=== PATIENT | female | born 1930 | race Caucasian/White ===

== ENCOUNTER 2016-09-12 13:46 | Inpatient (IN) | payer MEDICARE ==
[2016-09-12] MEDS ORDERED: VESICARE5 MG PO (14:31)
[2016-09-12] MEDS ORDERED: PRAVASTATIN SOD10 MG PO (14:31)
[2016-09-12] MEDS ORDERED: CLEOCIN HCL300 MG PO (14:32)
[2016-09-12] MEDS ORDERED: COZAAR25 MG PO (14:33)
[2016-09-12] MEDS ORDERED: PEPCID20 MG PO (14:33)
[2016-09-12] MEDS ORDERED: NORVASC10 MG PO (14:33)
[2016-09-12] MEDS ORDERED: MOBIC7.5 MG PO (14:34)
[2016-09-12] MEDS ORDERED: OMEPRAZOLE40 MG PO (14:34)
[2016-09-12] MEDS ORDERED: KLOR-CON 1010 MEQ PO (14:35)
[2016-09-12] MEDS ORDERED: PROBIOTIC1 EAC1 PO (14:36)
[2016-09-12] MEDS ORDERED: DEPAKOTE SPRIN125 MG PO (14:37)
[2016-09-12] MEDS ORDERED: COREG12.5 MG PO (14:37)
[2016-09-12] MEDS ORDERED: KLONOPIN1 MG PO (14:38)
[2016-09-12] MEDS ORDERED: ULTRAM50 MG PO (14:38)
[2016-09-12] MEDS ORDERED: CELEXA20 MG PO (14:38)
[2016-09-12 15:14] VITALS: BP 142/68
--- NOTE | 2016-09-12 15:31 | NUR ---
PT WAS ADMITTED FROM [facility] FOR INCREASED CONFUSION, AGITATION, SPITTING FOOD AT STAFF, RESTLESSNESS, AND NOT SLEEPING FOR MULTIPLE DAYS. DAUGHTER STATED THAT SHE ALSO PULLED HER HAIR. PT CONTINUES TO YELL AND IS RESISTANT TO CARE. PT CONTINUED TO ATTEMPT TO SLIDE OUT OF HER WHEELCHAIR DURING ADMIT, SO SHE WAS PLACED IN THE BED WITH A SASCHA PAD ALARM IN PLACE. CODE STATUS ADDRESSED WITH HER DAUGHTERS AND PT IS A DNR. PT IS A HIGH FALL RISK AND HAS HAD MULTIPLE FALLS PRIOR TO BEING ADMITTING TO [facility]. FALL PRECAUTIONS INITIATED AND WILL CONTINUE TO MONITOR.
[2016-09-12 16:08] LABS: BASOPHILS 0.2 % (0.0-2.0); EOSINOPHILS 1.1 % (0-7); HEMATOCRIT 32.5 % (36.0-48.0); HEMOGLOBIN 10.2 g/dL (12-16); IMMATURE GRANULOCYTES 0.3 % (0-5); LYMPHOCYTES 24.9 % (15-50); MCH 30.7 pg (26.0-34.0); MCHC 31.4 g/dL (31.0-37.0); MCV 97.9 fL (80.0-100.0); MEAN PLATELET VOLUME 10.4 fL (7.4-10.4); MONOCYTES 8.5 % (2-11); PLATELET COUNT 211 10x3/uL (130-400); RBC 3.32 10x6/uL (4.00-5.40); RDW 15.1 % (11.5-14.5); WBC 8.7 10x3/uL (4.8-10.8)
[2016-09-12 16:23] LABS: HEMOGLOBIN A1C 5.5 % (4.8-6.0)
[2016-09-12 17:33] LABS: ALBUMIN 3.1 g/dL (3.4-5.0); ANION GAP 16.4 mmol/L (8-16); BILIRUBIN - TOTAL 0.32 mg/dL (0.2-1.3); CALCIUM 9.3 mg/dL (8.5-10.1); CARBON DIOXIDE 23.2 mmol/L (21.0-32.0); CHOL - HDL RATIO 4.6 ratio (2.3-4.1); CREATININE - SERUM 1.8 mg/dL (0.6-1.3); LDL-HDL RATIO 2.2 ratio (1.5-3.5); PROTEIN - SERUM 6.9 g/dL (6.4-8.2); THYROID STIMULATING HORMONE 2.74 uIU/mL (0.36-3.74); VALPROIC ACID (DEPAKOTE) 26.5 ug/mL (50.0-100.0)
[2016-09-12 17:42] LABS: POTASSIUM - SERUM 6.6 mmol/L (3.5-5.1)
--- NOTE | 2016-09-12 18:43 | NUR ---
Kayexalate 15gm po given for critical potassium level of 6.6, patient compliant with medication administration.
[2016-09-12 19:00] VITALS: BP 110/70
[2016-09-12 21:00] VITALS: BP 110/70
--- NOTE | 2016-09-13 01:10 | NUR ---
B) Recieved patient in her bed, alert and restless, patient unable to stay still, I) Administered perscribed medications, monitored for safety, R) medication compliant, resting now quietly, P) Continue plan of care.
[2016-09-13 06:58] LABS: ANION GAP 18.6 mmol/L (8-16); CALCIUM 9.7 mg/dL (8.5-10.1); CARBON DIOXIDE 21.2 mmol/L (21.0-32.0); CREATININE - SERUM 1.4 mg/dL (0.6-1.3)
[2016-09-13 06:59] LABS: POTASSIUM - SERUM 4.8 mmol/L (3.5-5.1)
[2016-09-13 08:22] LABS: FOLATE (FOLIC ACID) - SERUM 16.8 ng/mL (>3.0); VITAMIN D 25 HYDROXY 42.1 ng/mL (30.0-100.0)
[2016-09-13 08:30] VITALS: BP 146/86
[2016-09-13 10:20] LABS: RAPID PLASMA REAGIN Non Reactive (Non Reactive)
--- NOTE | 2016-09-13 11:33 | NUR ---
Pt in wheelchair with alarm. Pt yelling and grimacing in pain. Exray of rt knee ordered. Duragesic 12 mcg patch ordered and placed. Pt continues to attempt to undress. Medications given as ordered. Assistance given for full assist. Redirection and reorientation given as needed. Will continue to monitor and continue plan of care.
--- NOTE | 2016-09-13 14:46 | NUR ---
Pt in recliner grimacing and yelling out. Tylenol 650mg po and ativan 0.5mg po given with applesauce.
[2016-09-13 15:17] VITALS: Wt 67.8 kg
--- NOTE | 2016-09-13 15:27 | NUR ---
WOUND CARE CONSULT PT HAS 2 OPEN WOUNDS ON RIGHT UPPER THIGH. UPPER MOST MEASURES APPROX 1CM X 1CM X 1CM LOWER WOUND MEASURES 2CM X 2CM X APPROX 1.5CM I AM UNABLE TO DETERMINE IF THE WOUNDS TUNNEL OR HAVE UNDERMINING PT IS VERY CONFUSED AND CONSTANTLY MOVING HER LEGS AND ARMS. WOUND RECOMMEND 1/2" PLAIN PACKING STRIP SATURATED WITH NORMAL SALINE IN BOTH WOUNDS (IF PT WILL ALLOW DRESSING TO BE DONE AND IF SHE WILL KEEP IT INTACT) AND COVERING WITH A WHITE BORDERED GAUZE. WOUND CARE WILL CONTINUE TO MONITOR.
--- NOTE | 2016-09-13 15:48 | NUR ---
Pt still grimacing, settles down for a few minutes when spoken to but then resumes. Repositioning performed by staff for comfort. Pt ate 100% of applesauce with assist.
--- NOTE | 2016-09-13 15:57 | NUR ---
updated pt's daughter on pt's behavior and test results. also reviewed skin issues with daughter. explained that the pt had c/o pain in right knee and an xray was ordered. daughter stated that the hip sx was done at formerly [facility] by Dr. Bradley.
--- NOTE | 2016-09-13 17:33 | NUR ---
Pt very agitated, trying to roll out of chair, over arms. Ativan 0.5mg IM given left hip.
[2016-09-13 20:27] VITALS: BP 108/53
--- NOTE | 2016-09-14 04:13 | NUR ---
B) Recieved patient in the day room, sleeping, difficult to arrouse, patient trying to slide out of her vanessa chair, I) amdinistered perscribed medication crushed in apple sauce, R) medication compliant, patient is a total lift X 2 assist. patient is nonverbal this shift, P) Continue plan of care continue to monitor.
[2016-09-14 06:00] LABS: BASOPHILS 0.4 % (0.0-2.0); EOSINOPHILS 0.7 % (0-7); HEMATOCRIT 32.5 % (36.0-48.0); HEMOGLOBIN 10.1 g/dL (12-16); IMMATURE GRANULOCYTES 0.2 % (0-5); LYMPHOCYTES 28.3 % (15-50); MCH 30.6 pg (26.0-34.0); MCHC 31.1 g/dL (31.0-37.0); MCV 98.5 fL (80.0-100.0); MEAN PLATELET VOLUME 10.4 fL (7.4-10.4); MONOCYTES 12.3 % (2-11); NEUTROPHILS 58.1 % (40-80); PLATELET COUNT 196 10x3/uL (130-400); RDW 15.6 % (11.5-14.5); WBC 8.4 10x3/uL (4.8-10.8)
[2016-09-14 06:08] LABS: ANION GAP 16.9 mmol/L (8-16); POTASSIUM - SERUM 4.9 mmol/L (3.5-5.1)
[2016-09-14 06:09] LABS: CREATININE - SERUM 2.3 mg/dL (0.6-1.3)
[2016-09-14 09:40] VITALS: BP 158/74
--- NOTE | 2016-09-14 15:04 | NUR ---
(B)RECEIVED PATIENT LAYING IN THE BED. MOANING AND GROANING. NO VERBAL RESPONSES WHEN ATTEMPTING TO TALK TO PATIENT. POOR EYE CONTACT. DOES NOT PARTICIPATE IN CARE. (I)ADMINISTER MEDS AND MONITOR COMPLIANCE. ENCOURAGE TO ASSIST WITH TRANSFERS AND GENERAL CARE. (R)MED COMPLIANT. CONTINUES TO LAY AND MOAN AND GROAN. DOES NOT ASSIST WITH ANY CARE FOR INSTANCE EATING, STAFF ATTEMPTS TO HELP FEED HER AND SHE WILL NOT EAT NOR TRY TO FEED SELF. LAYS AND DOES NOT INTERACT WITH OTHERS. (P)CONTINUE POC AND MAINTAIN FALL PRECAUTIONS.
[2016-09-14 19:30] VITALS: BP 142/79
--- NOTE | 2016-09-15 04:28 | NUR ---
PATIENT IN DAYROOM IN RECLINER. SHE IS PICKING AT CLOTHING AND MOANING. SHE IS ABLE TO FOLLOW DIRECTION WHEN GIVEN MEDICATION. NO AGGRESSION OR AGGITATION. CONTINUE TO MONITOR,
--- NOTE | 2016-09-15 09:42 | PN ---
PATIENT:EMILEE RICH MEDICAL RECORD: [id number] LOCATION:[facility] ADMISSION DATE: 09/12/16 PROGRESS NOTE DATE OF SERVICE: 09/14/2016 SUBJECTIVE: No new complaint. OBJECTIVE: The patient is very poorly articulated. X-ray of the knee was negative. She is tolerating medications fairly well. On exam, mood is euthymic. Affect constricted. Speech is terse. Content of thought focuses only on somatic concerns. Sensorium shows no change. ASSESSMENT: No change in diagnosis. PLAN: 1. Continue current medications. 2. Continue supportive therapy. TRANSINT:[id number] Voice Confirmation ID: [id number] DOCUMENT ID: [id number] MIRA KU III, MD at 0942 CC: [id number] DICTATION DATE: 09/14/16 1305 NURSE EXTERN: 09/14/16 1547 ADM IN [id number] [place] [address]
--- NOTE | 2016-09-15 09:42 | PSY ---
PATIENT NAME:EMILEE RICH MEDICAL RECORD: [id number] : 32 LOCATION:[facility] ADMISSION DATE: 09/12/16 ACCOUNT: [id number] PSYCHIATRIC EVALUATION DATE OF EVALUATION: 09/13/16 IDENTIFYING DATA: This is the first Alf admission for this 86-year-old white female. HISTORY OF PRESENT ILLNESS: This patient is a resident of [facility] in [place]. She did undergo hip surgery in July of this year. According to family, she has had severely worsened mental status since that time, although she had had memory problems and some confusion prior to the surgery. Confusion and memory loss as well as agitation have been considerably worse subsequent to the surgery. She has exhibited aggression towards her daughters. She also has been exhibiting recently very poor sleep, outbursts of yelling and worsened agitation. She does have a history of falls. There is no documented history of dementia diagnosis prior to this admission. PAST MEDICAL HISTORY: The patient had been treated previously with Celexa, presumably for depressive symptoms. She has also been placed on Depakote Sprinkles, again presumably for control of agitation. MEDICATIONS: Other medications that the patient was taking prior to transfer included Duragesic patch, Pravachol, Mobic 15 mg daily, Cozaar 25 mg daily, Pepcid 20 mg daily, Norvasc 10 mg daily, Coreg 12.5 mg daily, Protonix 40 mg daily, VESIcare 5 mg h.s.. ONGOING MEDICAL PROBLEMS: Included hypertension, GERD, chronic pain, cardiac arrhythmias and a recent hip surgery. The patient has also been taking Cleocin 300 mg every 8 hours. FAMILY HISTORY: Noncontributory. ALLERGIES: None known. SOCIAL HISTORY: The patient is currently a intermediate resident. She does have family involved in her care. No substance abuse issues. On exam, the patient exhibits anxious and dysphoric mood. She does not interact extremely well with the examiner. Affect is rather brittle. Speech is tangential. Content of thought is focused only on somatic concerns. The patient is oriented to person, but not as to place or time. Memory appears to be globally impaired. 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 AXIS II: No diagnosis. AXIS III: Recent hip surgery, arthritis, hypercholesterolemia, gastroesophageal reflux disease, hypertension, cardiac arrhythmias. AXIS IV: Severe. AXIS V: 34. PLAN: 1. The patient is admitted for further medical and psychiatric workup. 2. Supportive therapy. 3. We will coordinate with facility and family regarding aftercare. TRANSINT:[id number] Voice Confirmation ID: [id number] DOCUMENT ID: [id number] MIRA KU III, MD at 0942 CC: [id number] DICTATION DATE: 09/13/16 120 HEAD MIXER: 09/13/16 1248 ADM IN [id number] [place] [address]
--- NOTE | 2016-09-15 14:23 | NUR ---
(B)RECEIVED PATIENT SITTING IN A CHAIR AT THE NURSE'S STATION. RESTLESS. MOANING AND GROANING. TRYING TO PULL IV OUT AND CLOTHES OFF. REQUIRES ONE TO ONE WITH STAFF.WILL OCCASIONAL SPEAK ONE WORD THAT IS UNDERSTANDABLE. IV D51/4 INFUSING AT 100CC/HR PER LEFT PERIPHERAL IV. (I)ADMINISTER MEDS AND MONITOR COMPLIANCE. REDIRECT FOR TRYING TO PULL CLOTHES OFF AND IV OUT. (R)MED COMPLIANT. POOR REDIRECTION. PATIENT WILL MOAN, MUMBLE AND KEEP PULLING AT CLOTHES AND IV. 1:1 WITH STAFF AT ALL TIMES. PATIENT ON TEMPORARY ISOLATION FOR POSSIBLE STAPH OF THE RIGHT LEG INCISION. PLACED IN YELLOW GOWN AND GLOVES. (P)CONTINUE POC AND MAINTAIN FALL PRECAUTIONS.
[2016-09-15 18:28] LABS: ALBUMIN 2.6 g/dL (3.4-5.0); ANION GAP 16.1 mmol/L (8-16); BILIRUBIN - TOTAL 0.3 mg/dL (0.2-1.3); CALCIUM 8.6 mg/dL (8.5-10.1); CARBON DIOXIDE 20.4 mmol/L (21.0-32.0); POTASSIUM - SERUM 4.5 mmol/L (3.5-5.1); PROTEIN - SERUM 6.3 g/dL (6.4-8.2)
[2016-09-15 19:30] VITALS: BP 130/74
--- NOTE | 2016-09-16 00:53 | NUR ---
B) Recieved sitting in the day room in a vanessa chair, alert and oriented to self, one on one with a MHT due to having an IV and being very restless, I) Administered perscribed medications, redirected as needed, monitored for safety, R) Medication compliant, difficult to redirect, P) Continue plan of care, continue to monitor.
[2016-09-16 06:52] LABS: ANION GAP 19.5 mmol/L (8-16); CALCIUM 8.6 mg/dL (8.5-10.1); CARBON DIOXIDE 20.2 mmol/L (21.0-32.0); CREATININE - SERUM 1.6 mg/dL (0.6-1.3); POTASSIUM - SERUM 4.7 mmol/L (3.5-5.1)
--- NOTE | 2016-09-16 13:08 | NUR ---
RECEIVED SITTING IN RECLINER THIS AM.HAS EYES CLOSED.RESTLESS AND MOANS AND GROANS.PULLS AT CLOTHES IN ATTEMPT TO PULL THEM OFF .DOES NOT RESPOND VEBALLY,MAKES INCOHERRANT SOUNDS.IV OF D5 INFUSING TO LEFT ARM AT 100ML/HR.RT ANTERIOR THIGH HAS DRESSING INTACT,CLEAN AND DRY.WILL CONTINUE WITH PLAN OF CARE,MONITOR FOR CHANGES AND SAFETY.
[2016-09-16 19:01] LABS: BASOPHILS 0.1 % (0.0-2.0); EOSINOPHILS 0.4 % (0-7); HEMATOCRIT 33.3 % (36.0-48.0); HEMOGLOBIN 10.3 g/dL (12-16); IMMATURE GRANULOCYTES 0.4 % (0-5); LYMPHOCYTES 8.9 % (15-50); MCHC 30.9 g/dL (31.0-37.0); MCV 100.3 fL (80.0-100.0); MEAN PLATELET VOLUME 10.9 fL (7.4-10.4); NEUTROPHILS 82.2 % (40-80); PLATELET COUNT 163 10x3/uL (130-400); RBC 3.32 10x6/uL (4.00-5.40); RDW 15.1 % (11.5-14.5)
[2016-09-16 19:03] LABS: WBC 14.3 10x3/uL (4.8-10.8)
[2016-09-16 19:18] LABS: ALBUMIN 2.7 g/dL (3.4-5.0); ANION GAP 14.2 mmol/L (8-16); BILIRUBIN - TOTAL 0.49 mg/dL (0.2-1.3); CALCIUM 8.5 mg/dL (8.5-10.1); CARBON DIOXIDE 23.7 mmol/L (21.0-32.0); CREATININE - SERUM 1.5 mg/dL (0.6-1.3); MAGNESIUM - SERUM 1.8 mg/dL (1.8-2.4); PHOSPHOROUS 4.1 mg/dL (2.5-4.9); POTASSIUM - SERUM 4.9 mmol/L (3.5-5.1); PROTEIN - SERUM 6.4 g/dL (6.4-8.2)
[2016-09-16 19:30] VITALS: BP 110/82
--- NOTE | 2016-09-16 21:59 | NUR ---
B) PATIENT IS LETHARGIC, NOT AWAKENING TO VOICE OR TOUCH, SHE DOES OPEN HER EYES AND MOAN ON OCCASION. PATIENT HAS AN IV CATH IN LEFT AC, DAY NURSE DALE SAID WE ARE TO HOLD THE IV, DISCONNECTED IV LINE FROM PATIENT AND WILL WAIT FOR FURTHER ORDERS FROM DR. ELLIOTT. I) PROVIDE PRESCRIBED MEDS. R) HELD PO MEDS PATIENT IS TOO SLEEPY. CLEANSED RIGHT UPPER THIGH WOUND AND REDRESSED. P) CONTINUE PLAN OF CARE.
--- NOTE | 2016-09-17 01:19 | NUR ---
PATIENT HAS CRITICAL AMONIA LEVEL, DR. ELLIOTT NOTIFIED. PATIENT PUT BACK ON 5% DEXTROSE FLUIDS AT 75 ML PER HOUR.
[2016-09-17 06:25] LABS: ANION GAP 14.2 mmol/L (8-16); CALCIUM 8.6 mg/dL (8.5-10.1); CARBON DIOXIDE 23.3 mmol/L (21.0-32.0); CREATININE - SERUM 1.7 mg/dL (0.6-1.3); POTASSIUM - SERUM 4.5 mmol/L (3.5-5.1)
--- NOTE | 2016-09-17 08:00 | NUR ---
Received patient this am, lying in bed, moaning and trashing about in bed. Report per pm nurse that patient Iv infiltrated, vascular nurse to resite this am, patient also has critical ABG's and Ammonia level. Final report from wound culture has returned positive MRSA. Md called regarding vascular nurse unable to resite IV, reccommending midline. Per Dr. Holloway, transfer patient to medical floor. Transfer orders complete. Report called to Meghan on med surg. Patient daughter called regarding transfer to medical floor and room number.
--- NOTE | 2016-09-17 08:51 | PN ---
PATIENT:EMILEE RICH MEDICAL RECORD: [id number] LOCATION:[facility] ADMISSION DATE: 09/12/16 PROGRESS NOTE DATE OF SERVICE: 09/15/2016 SUBJECTIVE: No new complaint. OBJECTIVE: The patient continues to be quite restless. She has been started on IV because of hypokalemia. She requires close monitoring because the patient has attempted to pull out her IV. On exam, mood very anxious. Affect is brittle. Speech is not coherent. Content of thought focuses only on somatic concerns. Sensorium is unchanged. ASSESSMENT: No change in diagnosis. PLAN: 1. Continue all current medications. 2. Continue supportive therapy. TRANSINT:[id number] Voice Confirmation ID: [id number] DOCUMENT ID: [id number] MIRA KU III, MD at 0851 CC: [id number] DICTATION DATE: 09/15/16 1114 VISITING HOUSEKEEPER: 09/15/16 1125 ADM IN [id number] [place] [address]
[2016-09-17 09:12] VITALS: BP 183/74
--- NOTE | 2016-09-19 08:11 | DS ---
PATIENT:EMILEE RICH :32 MEDICAL RECORD: [id number] DISCHARGE SUMMARY ADMISSION DATE: 09/12/16 DISCHARGE DATE: 09/17/16 DATE OF ADMISSION: 09/12/2016 DATE OF DISCHARGE: 09/17/2016 HISTORY OF PRESENT ILLNESS: An 86-year-old white female who is a resident [facility] in [place]. The patient was in [facility] for rehabilitative stay. She had undergone hip surgery in July of this year. Since the hip surgery, the patient has shown a significant worsening in mental status. She had been exhibiting some minor memory problems prior to surgery, but confusion and memory loss were extremely prominent postoperatively. Because of agitation and obvious distress, the patient was admitted to [facility]. For further details, please see previously dictated history. COURSE IN THE HOSPITAL: The patient was evaluated by primary care Dr. Holloway. On initial exam, the previous surgery was noted the patient did have a significant wound from a recent hip surgery. The area of the incision remained open with some induration. At a later assessment, it appeared that there was some purulent material. The wound consult was obtained and the patient was started on antibiotics throughout the hospitalization. The patient continued to experienced pain. She was given tramadol for pain control. Wound was cultured and came back positive for MRSA. From a psychiatric standpoint, the patient was treated with p.r.n. Ativan and Celexa for depressive symptoms. However, the overriding concern was possible wound infection and complications as a result of this. Other ongoing medical problems included electrolyte disturbance. The patient was started on IV for control of hypernatremia. Following the receipt of the positive wound culture, was elected to transfer the patient to the medical floor for more extensive treatment. FINAL DIAGNOSES: AXIS I: Probable Alzheimer dementia, secondary delirium. AXIS II: No diagnosis. AXIS III: Recent hip surgery with possible wounds infection, recently ____ macular degeneration, anemia, hypercholesterolemia, arthritis, gastroesophageal reflux disease, hypertension. AXIS IV: Severe. AXIS V: 28. PLAN: The patient is told that the medical floor all possible treatment team. TRANSINT:[id number] Voice Confirmation ID: [id number] DOCUMENT ID: [id number] DISCHARGE SUMMARY REPORT [id number] EMILEE RICH III, MIRA Treadwell MD at 0825 CC: [id number] DICTATION DATE: 09/17/16 0849 FAMILY AND MARRIAGE COUNSELLOR: 09/18/16 0112 DIS IN 09/17/16 [facility] [id number]
== END 2016-09-17 08:55 | disposition short-term general hospital (02) | DRG 57 ==
LOC: D.PSYCH 13:46
PROVIDERS: Family Medicine; ADMIT Psychiatry & Neurology Psychiatry
DX: G30.9 Alzheimer's disease, unspecified (principal); F05 Delirium due to known physiological condition; E87.0 Hyperosmolality and hypernatremia; N17.9 Acute kidney failure, unspecified; F02.80 Dementia in other diseases classified elsewhere, unspecified severity, without behavioral disturbance, psychotic disturbance, mood disturbance, and anxiety; H35.30 Unspecified macular degeneration; D64.9 Anemia, unspecified; E78.00 Pure hypercholesterolemia, unspecified; K21.9 Gastro-esophageal reflux disease without esophagitis; I10 Essential (primary) hypertension; F41.9 Anxiety disorder, unspecified; F32.9 Major depressive disorder, single episode, unspecified; R21 Rash and other nonspecific skin eruption; Z91.81 History of falling; S31.809A Unspecified open wound of unspecified buttock, initial encounter; B95.62 Methicillin resistant Staphylococcus aureus infection as the cause of diseases classified elsewhere

== ENCOUNTER 2016-09-17 09:38 | Inpatient (IN) | payer MEDICARE, OTHER ==
[~2016-09-17] VITALS: Ht 157.5 cm; Wt 67.6 kg
--- NOTE | 2016-09-17 09:00 | NUR ---
RECEIVED FROM [facility], THRASHING IN BED, PULLING NC OFF, PULLED IV OUT, VASCULAR ACCESS NURSE ATTEMPTED TO PUT MIDLINE IN, SHE WOULDN'T STAY STILL ENOUGH, WILL CONTINUE TO MONITOR
[~2016-09-17 09:38] MED LIST: CELEXA20 MG PO; CLEOCIN HCL300 MG PO; COREG12.5 MG PO; COZAAR25 MG PO; DEPAKOTE SPRIN125 MG PO; KLONOPIN1 MG PO; KLOR-CON 1010 MEQ PO; MOBIC7.5 MG PO; NORVASC10 MG PO; OMEPRAZOLE40 MG PO; PEPCID20 MG PO; PRAVASTATIN SOD10 MG PO; PROBIOTIC1 EAC1 PO; ULTRAM50 MG PO; VESICARE5 MG PO
--- NOTE | 2016-09-17 10:39 | NUR ---
WOUND CARE: NOTED WOUNDS TO UPPER RIGHT THIGH HAVE NOT IMPROVED. TOP WOUND MEASURES 0.5CM X 0.5CM X 1CM IT IS YELLOW/NECROTIC. LOWER WOUND MEASURES 2CM X 2CM X 2CM X 1CM @ 12 OCLOCK. YELLOW NECROTIC TISSUE IS NOTED. CULTURE GREW MRSA ALSO NOTED MOISTURE ASSOCIATED DERMATITIS ON HER BOTTOM. RECOMMEND CALMOSEPTINE CREAM BE APPLIED. ORTHO HAS BEEN CONSULTED. WOUND CARE WILL CONTINUE TO MONITOR.
[2016-09-17 10:49] VITALS: BP 128/72; BMI 27.3
[2016-09-17 11:27] LABS: BASOPHILS 0.1 % (0.0-2.0); EOSINOPHILS 1.2 % (0-7); HEMATOCRIT 29.6 % (36.0-48.0); HEMOGLOBIN 9.3 g/dL (12-16); IMMATURE GRANULOCYTES 0.4 % (0-5); LYMPHOCYTES 10.5 % (15-50); MCH 30.7 pg (26.0-34.0); MCHC 31.4 g/dL (31.0-37.0); MEAN PLATELET VOLUME 10.8 fL (7.4-10.4); MONOCYTES 7.5 % (2-11); NEUTROPHILS 80.3 % (40-80); PLATELET COUNT 161 10x3/uL (130-400); RBC 3.03 10x6/uL (4.00-5.40); RDW 14.7 % (11.5-14.5); WBC 14.2 10x3/uL (4.8-10.8)
[2016-09-17 11:38] LABS: MCV 97.7 fL (80.0-100.0)
[2016-09-17 11:39] LABS: ALBUMIN 2.5 g/dL (3.4-5.0); ANION GAP 12.8 mmol/L (8-16); BILIRUBIN - TOTAL 0.47 mg/dL (0.2-1.3); CALCIUM 8.8 mg/dL (8.5-10.1); CARBON DIOXIDE 24.2 mmol/L (21.0-32.0); CREATININE - SERUM 1.6 mg/dL (0.6-1.3); PROTEIN - SERUM 6.4 g/dL (6.4-8.2)
[2016-09-17 11:40] VITALS: BP 126/74
[2016-09-17 14:24] VITALS: BP 136/50
[2016-09-17 15:32] VITALS: BP 136/50
--- NOTE | 2016-09-17 20:05 | NUR ---
PT LYING IN BED MOANING, BILAT WRISTS IN SOFT RESTRAINTS, REMOVED ONE AT A TIME TO ASSESS CIRCULATION AND MOVEMENT, BOTH WNL, NO ACUTE PHYSICAL DISTRESS NOTED AT THIS TIME, FALL AND ISOLATION PRECAUTIONS IN PLACE, CL IN REACH, DOOR OPEN FOR EASY VIEWING, WILL MONITOR
[2016-09-18] VITALS (8 sets, daily range): BP systolic 85–169; BP diastolic 52–107; Ht 157.5 cm; Wt 67.6 kg
--- NOTE | 2016-09-18 01:51 | NUR ---
CONTINUES TO MOAN AND YELL OUT, NO PHYSICAL DISTRESS NOTED, SAFETY AND ISOLATION PRECAUTIONS IN PLACE, CL IN REACH, WILL MONITOR
--- NOTE | 2016-09-18 03:03 | NUR ---
CONTINUES TO YELL OUT, RESTRAINT SITES ASSESSED, NO TRAUMA NOTED, SAFETY MEASURES IN PLACE, WILL CONTINUE TO MONITOR
[2016-09-18 06:33] LABS: BASOPHILS 0.1 % (0.0-2.0); EOSINOPHILS 1.8 % (0-7); HEMATOCRIT 27.1 % (36.0-48.0); HEMOGLOBIN 8.6 g/dL (12-16); IMMATURE GRANULOCYTES 0.3 % (0-5); LYMPHOCYTES 12.5 % (15-50); MCH 30.8 pg (26.0-34.0); MCHC 31.7 g/dL (31.0-37.0); MCV 97.1 fL (80.0-100.0); MEAN PLATELET VOLUME 11.4 fL (7.4-10.4); MONOCYTES 9.3 % (2-11); PLATELET COUNT 148 10x3/uL (130-400); RBC 2.79 10x6/uL (4.00-5.40); RDW 14.7 % (11.5-14.5); WBC 13.3 10x3/uL (4.8-10.8)
[2016-09-18 06:53] LABS: APTT 35.4 SECONDS (22.8-39.4); INR 1.23 (0.85-1.17); PROTIME 15.4 SECONDS (11.6-15.0)
[2016-09-18 06:59] LABS: ALBUMIN 2.4 g/dL (3.4-5.0); ANION GAP 13.2 mmol/L (8-16); BILIRUBIN - TOTAL 0.42 mg/dL (0.2-1.3); CALCIUM 8.7 mg/dL (8.5-10.1); CARBON DIOXIDE 22.7 mmol/L (21.0-32.0); CHOL - HDL RATIO 2.9 ratio (2.3-4.1); CREATININE - SERUM 1.3 mg/dL (0.6-1.3); LDL-HDL RATIO 1.2 ratio (1.5-3.5); POTASSIUM - SERUM 4.9 mmol/L (3.5-5.1); PRE-ALBUMIN 12.4 mg/dL (18.0-35.7); PROTEIN - SERUM 6.2 g/dL (6.4-8.2)
--- NOTE | 2016-09-18 12:40 | NUR ---
PATIENT NOT COOPERATING, UNABLE TO GIVE PO MEDS. TRIED TO GIVE PATIENT A BITE OF PUDDING WITH DEPAKOTE IN IT, PATIENT DID NOT SWALLOW. TRIED TO GIVE PATIENT A DRINK OF WATER THICKENED.PATIENT DID NOT TAKE A DRINK. EVEN WITH MYSELF AND PATIENT'S DAUGHTERS TELLING HER TO TAKE A DRINK. DID ORAL CARE. PATIENT HAD INCONTINENT VOID. CLEANED PATIENT UP AND CHANGED LINENS WITH ASSIST FROM DIESEL TRACTOR OPERATOR. RELEASED RESTAINTS WHILE CHANGING PATIENT. PATIENT PULLING AT OXYGEN TRIED TO TAKE IT OFF. TRYING TO PULL AT IV. TRIED TO ORIENT PATINET TO THE SITAUATION EXPLAINING THAT IT IS HER OXYGEN SHE IS PULLING OFF, PATIENT KEPT PULLING AND THINGS AND MOANING. BED IN LOWEST POSITION, CALL LIGHT IN REACH. BED RAILS UP X'S 3. SOFT WRIST RESTRAINTS BACK ON. CONTACT ISOLATION MAINTAINED.
--- NOTE | 2016-09-18 14:34 | NUR ---
PATIENT HAD INCONTINENT VOID. CLEANED UP AND PATIENT AND CHANGED LINENS WITH ASSIST FROM PHYSICAL TRAINER. RELEASED RESTRAINTS WHILE CLEANING UP PATIENT. PATIENT MOANING TRYING TO PULL OFF OXYGEN AND IV. PATIENT NOT FOLLOWING COMMANDS. TURNED PATIENT TO HER RIGHT SIDE. APPLIED CALMOSEPTINE TO BUTTOCKS. REAPPLIED WRIST RESTRAINTS. SUCTIONED PATIENT USING YONKER, DID NOT GET ANY SPUTUM OUT. ORAL CARE COMPLETED USING GREEN SPONGES AND WATER. BED IN LOWEST POSITION, CALL LIGHT IN REACH. BED RAILS UP X'S 2. HOB 30 DEGREES.
--- NOTE | 2016-09-18 18:24 | NUR ---
ORDER FOR NGT. PATIENT IS NOT ORIENTED. NO FAMILY AT BEDSIDE. CALLED DAUGHTERS' PHONE NUMBERS LISTED ON THE CHART. NO ANSWER. LEFT A MESSAGE FOR FARNAZ GONSALEZ TO CALL BACK.
--- NOTE | 2016-09-18 18:31 | NUR ---
SPOKE WITH FARNAZ GONSALEZ, EXPLAINED WHAT AN NGT IS AND THE PURPOSE. SHE STATED "YES, PUT IT IN. WHATEVER WE CAN DO TO HELP HER."
--- NOTE | 2016-09-18 18:50 | NUR ---
16 NEPALI NGT PUT IN BY KIT YOUSIF
--- NOTE | 2016-09-18 19:00 | NUR ---
PATIENT SUPINE IN BED IN SOFT WRIST RESTRAINTS. AWAKE AND MOANING BUT IS NONVERBAL AND DOES NOT FOLLOW COMMANDS. RR EVEN AND UNLABORED. O2 @ 2L VIA NC. NG TUBE TO RIGHT NARE TO LIS. IV TO LEFT AC PATENT WITH NO REDNESS OR SWELLING. DRESSING TO RIGHT HIP OFF. PACKED AND REDRESSED PER ORDER. BED ALARM ON. SRX2. BED LOW. DOOR OPEN.
--- NOTE | 2016-09-18 21:00 | NUR ---
RESTRAINTS DOCUMENTED PER PROTOCOL. BATH GIVEN. LINENS AND GOWN CHANGED.
--- NOTE | 2016-09-18 23:00 | NUR ---
INCONTINENT EPISODE OF BLADDER. LINENES AND GOWN CHANGED. TURNED PATIENT TO RIGHT.
--- NOTE | 2016-09-18 23:10 | NUR ---
PATIENT CONTINUOUSLY MOANING AND GRIMACING. ATIVAN GIVEN FOR ANXIETY AND DILAUDID GIVEN FOR PAIN. WILL REASSESS.
[2016-09-19] VITALS (12 sets, daily range): BP systolic 96–157; BP diastolic 46–98
--- NOTE | 2016-09-19 01:00 | NUR ---
RESTRAINTS DOCUMENTED PER PROTOCOL. LINENS AND GOWN CHANGED DUE TO INCONTINENT EPISODE OF BLADDER. TURNED PATIENT TI BACK.
--- NOTE | 2016-09-19 03:00 | NUR ---
RESTRAINTS DOCUMENTED PER PROTOCOL. DILAUDID GIVEN FOR PAIN. LINENS AND GOWN CHANGED. TURNED PATIENT TO LEFT.
[2016-09-19 05:48] LABS: BASOPHILS 0.2 % (0.0-2.0); HEMATOCRIT 24.3 % (36.0-48.0); HEMOGLOBIN 8.1 g/dL (12-16); IMMATURE GRANULOCYTES 0.2 % (0-5); LYMPHOCYTES 9.5 % (15-50); MCH 31.6 pg (26.0-34.0); MCHC 33.3 g/dL (31.0-37.0); MEAN PLATELET VOLUME 11.6 fL (7.4-10.4); MONOCYTES 9.8 % (2-11); NEUTROPHILS 78.3 % (40-80); PLATELET COUNT 137 10x3/uL (130-400); RBC 2.56 10x6/uL (4.00-5.40); RDW 14.6 % (11.5-14.5)
[2016-09-19 06:24] LABS: MCV 94.9 fL (80.0-100.0); WBC 9.3 10x3/uL (4.8-10.8)
[2016-09-19 06:33] LABS: ALBUMIN 2.1 g/dL (3.4-5.0); ANION GAP 13.2 mmol/L (8-16); BILIRUBIN - TOTAL 0.5 mg/dL (0.2-1.3); CALCIUM 8.3 mg/dL (8.5-10.1); CARBON DIOXIDE 22.2 mmol/L (21.0-32.0); PROTEIN - SERUM 5.6 g/dL (6.4-8.2)
[2016-09-19 06:42] LABS: POTASSIUM - SERUM 3.4 mmol/L (3.5-5.1)
--- NOTE | 2016-09-19 07:31 | NUR ---
PATIENT IS RESTING QUIETLY WITH EYES CLOSED. HOB 30 DEGREES. RESPIRATIONS ARE EVEN AND UNLABORED. PATIENT IS RECIEVING OXYGEN VIA NASAL CANNULA AT 2L/MIN. NGT TO RIGHT NARE HOOKED TO LIWS. DARK BROWN/GREEN GASTRIC CONTENT IN CANESTER AND TUBING. PATIENT IS TURNED TO HER LEFT SIDE, POSITIONED WITH PILLOWS. CHECKED PAD, NO URINE OR STOOL PRESENT, PAD IS DRY. CHANGED PATIENT'S DRESSING TO RIGHT ANTERIOR LEG. PACKED WITH 1/2 INCH IODOFORM PACKING STRIP AND COVERED WITH A BORDERED GAUZE. PATIENT DID NOT WAKE UP. RESPIRATIONS ARE 18/MIN. BED IN LOWEST POSITION, CALL LIGHT IN REACH. CONTACT ISOLATION PRECAUTIONS MAINTAINED. DOOR IS OPEN.
--- NOTE | 2016-09-19 09:01 | NUR ---
CALLED FARNAZ GONSALEZ, PATIENT'S DAUGHTER THAT SHE LIVES WITH, TO OBTAIN CONSENT FOR LUMBAR PUNCTURE. EXPLAINED THE PURPOSE OF THE PROCEDURE, THE PROCESS AND POSSIBLE RISKS PER [facility] LUMBAR PUNCTURE PATIENT INFORMATION PACKET. SHE STATED "YES I CONSENT." SHE STATED SHE DOES NOT HAVE POWER OF NET WEB DEVELOPER AND DAVID IS THE OLDEST DAUGHTER AND NEXT OF KIN. CALLED DAVID GOMEZ. EXPLAINED TO HER ALL OF THE ABOVE. SHE STATED "YES I GIVE CONSENT." FRANNY ASHTON WITNESSED AND CONFIRMED WITH DAVID GOMEZ THE CONSENT.
--- NOTE | 2016-09-19 09:48 | NUR ---
PATIENT IS GETTING READY TO HAVE EEG, RUBY RAILS DEVELOPER IS APPLYING THE ELECTRODES AND PATIENT IS MOVING AROUND MOANING. ADMINISTERED 0.5MG OF ATIVAN ORDERED PRN.
--- NOTE | 2016-09-19 11:00 | NUR ---
PATIENT MOANING AND MOVING ARMS AROUND
--- NOTE | 2016-09-19 11:36 | NUR ---
PATIENT MOANING. MOVING ALL AROUND. BILATERAL WRIST RESTRAINTS ON. PATIENT TRYING TO GRAB EVERYTHING SHE SCAN REACH. REACHING FOR NG, IV AND WRIST RESTRAINTS. PATIENT HAD INCONTINENT VOID. CLEANED PATIENT UP WITH ASSIST FROM A SUPERVISOR PLATING AND POINT ASSEMBLY. APPLIED CALMOSEPTINE TO BUTTOCKS. CHANGED PATIENT'S LINENS. PULLED HER UP IN BED. TURNED HER TO RIGHT SIDE, OFF OF HER BUTTOM POSITIONED WITH A PILLOW. PATIENT MOVING AROUND IN BED, HAS ALREADY MOVED HERSELF BACK DOWN IN BED AND ON HER BACK, SLANTED IN THE BED. PATIENT IS STEADILY MOVING AND MOANING. PATIENT DOES NOT FOLLOW COMMANDS. AUDIBLE CRACKLES IN THROAT AREA. DID ORAL CARE. SUCTIONED WITH A YONKER, PATIENT RESISTED AND BIT DOWN ON THE YONKER. WAS NOT ABLE TO GET ANYTHING OUT. PATIENT HAS NGT TO RIGHT GENESIS HOWE. HOB 30 DEGREES.
--- NOTE | 2016-09-19 15:02 | NUR ---
Patient Name: EMILEE RICH Admission Status: Elective Accout number: [id number] Admission Date: 09-17-2016 : 1931 Admission Diagnosis:INFECT/INFLM REACTION DUE TO INTERNAL LEFT HIP PROSTH, Attending: CHERELLE Current LOS: 2 Anticipated DC Date: 09-25-2016 Planned Disposition: Longterm Facility Primary Insurance: MEDICARE A & B Discharge Planning Comments: CM MET CALLED PATIENTS DAUGHTER (FARNAZ) REGARDING D/C NEEDS AND PLANS. PATIENT IS TOO CONFUSED TO ASK QUESTIONS. DAUGHTER STATED SHE LIVES WITH HER MOM AND WILL DRIVE HER HOME WHEN DISCHARGED. PATIENT WAS INDEPENDENT BEFORE HER SURGERY AT [place] PER DAUGHTER. PATIENT HAS A WALKER, WHEELCHAIR, SHOWER CHAIR, AND BS COMMODE AT HER HOME. PATIENT SEES JEMMA OTOOLE (DR. SALINAS) IN [place]. PATIENTS PHARMACY IS [facility] IN [place]. DAUGHTER HOPES PATIENT CAN GO TO A REHAB AT DISCHARGE. CM WILL CONTINUE TO FOLLOW PATIENT WITH D/C NEEDS AND PLANS. PCP DR. SALINAS ([facility]) [facility] IN [place]- [phone] FARNAZ SUNSHINE (DAUGHTER) [phone] [employer] Transport Operator: Karrie Jaimes
[2016-09-19 16:17] LABS: GLUCOSE - CSF 70 MG/DL (40-75); PROTEIN - CSF 40 MG/DL (12-60)
[2016-09-19 16:22] LABS: LYMPH - CSF 18 % (40-80); MONO - CSF 1 % (15-45); NEUT - CSF 81 % (0-6)
[2016-09-19 16:23] LABS: APPEARANCE - CSF PINK; RBC - CSF 2020 cmm (0-0)
[2016-09-19 16:30] LABS: LYMPH - CSF 59 % (40-80); MONO - CSF 1 % (15-45); NEUT - CSF 40 % (0-6)
[2016-09-19 16:36] LABS: APPEARANCE - CSF PINK
[2016-09-19 16:37] LABS: RBC - CSF 1490 cmm (0-0)
--- NOTE | 2016-09-19 17:12 | NUR ---
SCREAMING AND CRYING IN PAIN, "HELP ME, HELP ME, I AM HURTING SIO BAD." RN IN ANOTHER ROOM AT THIS TIME SO DILAUDID 0.5 MG SIVP. REPOSITIONED IN BED WITH ASSISTANCE FROM RAMON.
--- NOTE | 2016-09-19 19:00 | NUR ---
PATIENT SUPINE IN BED IN SOFT WRIST RESTRAINTS. AWAKE AND MOANING, BUT NO VERBAL RESPONSE AND DOES NOT FOLLOW COMMANDS. O2 @ 2L VIA NC. NG TUBE TO RIGHT NARE CLAMPED. CASTILLO SECURED WITH STATLOCK AND DRAINING TO GRAVITY. DRESSING TO RIGHT THIGH CDI. IV TO LEFT AC PATENT. B/A ON. SRX2. BED LOW. DOOR OPEN.
--- NOTE | 2016-09-19 19:57 | NUR ---
CALLED . NOTIFIED HER THAT PATIENT ONLY HAS AN IV. WE WILL CONSULT MICHAEL, VENOUS ACCESS NURSE IN THE MORNING FOR ACCESS. INSERTED CASTILLO CATHETER 16 MALAGASY.
[2016-09-19 20:51] LABS: APPEARANCE HAZY (CLEAR); BILIRUBIN NEGATIVE (NEGATIVE); COLOR YELLOW (YELLOW); GLUCOSE NEGATIVE (NEGATIVE); KETONE NEGATIVE (NEGATIVE); LEUKOCYTE ESTERASE 2+ (NEGATIVE); NITRITE NEGATIVE (NEGATIVE); PROTEIN NEGATIVE (NEGATIVE); UROBILINOGEN NORMAL (NORMAL)
[2016-09-19 20:52] LABS: BACTERIA MODERATE /hpf (NONE SEEN); EPITHELIAL CELLS 0-5 /hpf (0-5); RED CELLS - URINE 0-5 /hpf (0-5); WHITE CELLS - URINE >50 /hpf (0-5)
--- NOTE | 2016-09-19 21:00 | NUR ---
RESTRAINT DOCUMENTATION COMPLETE PER PROTOCOL. TURNED PATIENT TO RIGHT.
--- NOTE | 2016-09-19 23:05 | NUR ---
RESTRAINT DOCUMENTATION COMPLETE. NIGHTTIME MEDS GIVEN. SWITCHED FLUIDS TO NS PER ORDER. TURNED PATIENT TO BACK.
[2016-09-20] VITALS (11 sets, daily range): BP systolic 106–149; BP diastolic 50–98
--- NOTE | 2016-09-20 00:05 | NUR ---
ATIVAN AND DILAUDID GIVEN PER ORDER. WILL REASSESS.
--- NOTE | 2016-09-20 01:00 | NUR ---
BATH GIVEN. LINENS AND GOWN CHANGED. IV OUT. TURNED PATIENT TO LEFT.
--- NOTE | 2016-09-20 01:55 | NUR ---
PATIENT STILL MOANING AND EXTREMELY RESTLESS. WRISTS BECOMING VERY RED. SPOKE WITH DR. ELLIOTT. 1MG ATIVAN IM GIVEN PER TELEPHONE ORDER.
--- NOTE | 2016-09-20 02:45 | NUR ---
2ND DOSE OF 1MG ATIVAN IM GIVEN PER TELEPHONE ORDER. TURNED PATIENT TO RIGHT.
--- NOTE | 2016-09-20 03:21 | NUR ---
PATIENT NOW RESTING QUIETLY WITH NO DISTRESS NOTED.
[2016-09-20 06:16] LABS: BASOPHILS 0.2 % (0.0-2.0); EOSINOPHILS 2.3 % (0-7); HEMOGLOBIN 9.7 g/dL (12-16); IMMATURE GRANULOCYTES 0.3 % (0-5); LYMPHOCYTES 20.1 % (15-50); MCH 30.7 pg (26.0-34.0); MCHC 33.1 g/dL (31.0-37.0); MONOCYTES 13.4 % (2-11); NEUTROPHILS 63.7 % (40-80); RDW 14.2 % (11.5-14.5); WBC 9.2 10x3/uL (4.8-10.8)
[2016-09-20 06:18] LABS: HEMATOCRIT 29.3 % (36.0-48.0); MCV 92.7 fL (80.0-100.0); PLATELET COUNT 189 10x3/uL (130-400); RBC 3.16 10x6/uL (4.00-5.40)
[2016-09-20 06:35] LABS: INR 1.32 (0.85-1.17); PROTIME 16.3 SECONDS (11.6-15.0)
[2016-09-20 06:41] LABS: CALCIUM 8.4 mg/dL (8.5-10.1); CARBON DIOXIDE 23.2 mmol/L (21.0-32.0); CHLORIDE - SERUM 103 mmol/L (98-107); GLUCOSE 93 mg/dL (74-106); POTASSIUM - SERUM 3.5 mmol/L (3.5-5.1); SODIUM 139 mmol/L (136-145); eGFR NON AFRICAN AMERICAN 84 mL/min (90-120)
[2016-09-20 06:42] LABS: CALC OSMOLALITY 277 mosm/kg (275-300); CREATININE - SERUM 0.7 mg/dL (0.6-1.3); UREA NITROGEN 12 mg/dL (7-18)
--- NOTE | 2016-09-20 07:30 | NUR ---
YOGESH AT PRESENT IV OUT STATES UNABLE TO START.IV STARTED IN LEFT WRIST 24 JELCO AT PRESENT TAPED SECURELY TO ARM.
--- NOTE | 2016-09-20 09:00 | NUR ---
CONT NPO AT PRESENT.
--- NOTE | 2016-09-20 10:00 | NUR ---
DSG CHG DONE TO RT UPPER THIGH CLEANED AND REPACKED WITH IODOFORM GAUZE CONT CRYING ATIVAN.
--- NOTE | 2016-09-20 10:00 | NUR ---
ASLEEP AT THIS TIME N/G INPLACE AND CLAMPED AT PRESENR.
[2016-09-20 10:19] LABS: HEPATITIS C ANTIBODY <0.1 (0.0-0.9)
--- NOTE | 2016-09-20 11:13 | NUR ---
DAUGHTER CALLED TO CHECK ON PT AT PRESENT DENIES ANY NEEDS AT THIS TIME.
--- NOTE | 2016-09-20 12:00 | NUR ---
CONT TO MOAN AND THRASH AROUND IN BED AT PRESENT.
--- NOTE | 2016-09-20 13:52 | NUR ---
Nutrition Follow Up: Pt was asleep and no family present at the time of RD visit. Interview deferred and chart reviewed. Pt with NGT - now clamped. Wt stable. No BM since admit. Meds noted including Vanc, NS @ 50 ml/hr, Lactulose, Clinimix @ 50 ml/hr. Clinimix is providing 612 kcal and 51 g protein per day. Noted wound care following pt. If MD/family desire to start TF rec Jevity 1.2 @ 20 ml/hr. Advance 10 ml every 6-8 hours as tolerated to goal rate of 50 ml/hr. Water flushes 25 ml/hr. RD following.
--- NOTE | 2016-09-20 14:00 | NUR ---
REPOSITION FOR COMFORT AT PRESENT.
[2016-09-20 14:23] LABS: FUNGUS STAIN Final report (())
--- NOTE | 2016-09-20 16:00 | NUR ---
DOZING AT SHORT INTERVALS REPOSITION IN BED AT PRESENT.
[2016-09-20 16:14] LABS: ACID FAST SMEAR Negative (()); AFB SPECIMEN PROCESSING Not Indicated (())
--- NOTE | 2016-09-20 17:57 | NUR ---
N/G TUBE DCD AT PRESENT.
--- NOTE | 2016-09-20 19:00 | NUR ---
PATIENT SUPINE IN BED ON SOFT WRIST RESTRAINTS. GRIMACING AND MOANING VERY LOUDLY. O2 @ 2L VIA NC. RIGHT PICC INFUSING CLINIMIX @ 50. DRESSING TO RIGHT HIP CDI. B/A ON. SRX3. DOOR OPEN.
[2016-09-20 19:42] LABS: BASOPHILS 0.3 % (0.0-2.0); EOSINOPHILS 1.7 % (0-7); HEMATOCRIT 29.8 % (36.0-48.0); HEMOGLOBIN 9.5 g/dL (12-16); IMMATURE GRANULOCYTES 0.4 % (0-5); LYMPHOCYTES 14.8 % (15-50); MCH 30.2 pg (26.0-34.0); MCHC 31.9 g/dL (31.0-37.0); MCV 94.6 fL (80.0-100.0); MEAN PLATELET VOLUME 11.4 fL (7.4-10.4); MONOCYTES 17.6 % (2-11); NEUTROPHILS 65.2 % (40-80); PLATELET COUNT 180 10x3/uL (130-400); RBC 3.15 10x6/uL (4.00-5.40); RDW 14.5 % (11.5-14.5)
--- NOTE | 2016-09-20 21:00 | NUR ---
RESTRAINT DOCUMENTATION COMPLETE. TURNED PATIENT TO RIGHT.
--- NOTE | 2016-09-20 22:35 | NUR ---
PATIENT CONTINUING TO MOAN LOUDLY. SPOKE WITH DR. ELLIOTT. DILAUDID ORDER RENEWED AND GIVEN. TEMP 101.7. IV TYLENOL GIVEN PER TELEPHONE ORDER. WILL CONTINUE TO MONITOR. NIGHTTIME MEDS GIVEN.
[2016-09-21] VITALS (10 sets, daily range): BP systolic 119–179; BP diastolic 54–97
--- NOTE | 2016-09-21 01:00 | NUR ---
PATIENT STILL MOANING AFTER DILAUDID. ATIVAN GIVEN PER ORDER. RESTRAINTS DOCUMENTED. TURNED PATIENT TO LEFT.
--- NOTE | 2016-09-21 03:00 | NUR ---
RESTRAINT DOCUMENTATION COMPLETE. PATIENT RESTING QUIETLY WITH NO DISTRESS NOTED.
--- NOTE | 2016-09-21 05:26 | NUR ---
DILAUDID GIVEN FOR PAIN. REPOSITIONED PATIENT. RESTRAINTS DOCUMENTED.
[2016-09-21 06:02] LABS: INR 1.36 (0.85-1.17); PROTIME 16.6 SECONDS (11.6-15.0)
[2016-09-21 06:14] LABS: ALBUMIN 2.1 g/dL (3.4-5.0); ANION GAP 10.3 mmol/L (8-16); BILIRUBIN - TOTAL 0.35 mg/dL (0.2-1.3); CALCIUM 8.4 mg/dL (8.5-10.1); CARBON DIOXIDE 26.7 mmol/L (21.0-32.0); CREATININE - SERUM 0.8 mg/dL (0.6-1.3); PROTEIN - SERUM 6.1 g/dL (6.4-8.2)
--- NOTE | 2016-09-21 07:00 | NUR ---
PT AWAKE AND YELLING OUT WRITHING IN PAIN GIVEN 1 TIME ORDER FOR EXTRA DOSE OF DILAUDID 0.5MG GIVEN PER ORDER SWR REMAIN IN PLACE PT IS STRAINING AT RESTRAINTS.
--- NOTE | 2016-09-21 08:45 | EEG ---
PATIENT:EMILEE RICH DATE OF SERVICE: 09/17/16 MEDICAL RECORD: [id number] DATE OF : 32 LOCATION:D.222 D.MS ADMISSION DATE: 09/17/16 REFERRING PHYSICIAN: INTERPRETING PHYSICIAN: LYUDMILA KENDALL MD DATE OF SERVICE: 09/19/2016 Referred by myself as an inpatient, currently in room 2226. ELECTROENCEPHALOGRAM NUMBER: [id number]. DATE OF EXAMINATION: 09/19/16 at 10:00 a.m. TECHNICAL DATA: This electroencephalographic recording consisted of approximately 20 minutes of data collection utilizing the international 10/20 system of electrode placement and both referential and non-referential montages. Sixteen channels of electrocerebral recording are accompanied by a 17th channel dedicated to the electrocardiographic rhythm and 2 channels of electromyographic recording. Recording is performed entirely in the lethargic state utilizing activation by photic stimulation. ELECTROENCEPHALOGRAPHIC DATA: The entirety of the recorded electrocerebral activity is performed in the lethargic state. Electromyographic artifact remains prominent. Rapid eye movements are rarely seen. The patient is poorly responsive to verbal stimulation, but is crying and moaning throughout the recording, turning in bed. The posterior dominant background is not developed. The study is monotonous and consists of a mixture of slow wave activities that are irregular in morphology, diffuse and symmetric in distribution, ranging from 2-3 Hz in the delta range to 5-6 Hz on occasion in the theta range. No focal slowing is identified. No epileptiform discharges are seen. Photic stimulation induces no abnormal change in the recorded electrocerebral activity. INTERPRETATION: Continuous slow, generalized (lethargy). This electroencephalographic recording is indicative of a moderately severe diffuse encephalopathy. TRANSINT:[id number] Voice Confirmation ID: [id number] DOCUMENT ID: [id number] LYUDMILA KENDALL MD at 0845 CC: [id number] DICTATION DATE: 09/20/16 0635 ALL SOURCE ANALYST: 09/20/16 0716 ADM IN [place] [id number] [place] [address]
--- NOTE | 2016-09-21 09:00 | NUR ---
PT CONTINUES WITH RESTRAINTS PULLING AT LINES. NEW ORDER FOR 1 MG IV DILAUDID Q4 HRS FOR PAIN CONTROL.
--- NOTE | 2016-09-21 11:00 | NUR ---
IV PAIN MEDS NOT EFFECTIVE FOR ANY LENGTH OF TIME GIVEN ATIVAN PER ORDER. WILL MONITOR REMAINS WITH SWR
--- NOTE | 2016-09-21 13:00 | NUR ---
PT AWAKE AND MOANING NEW ORDER FOR 2 MG IV DILAUDID GIVEN PER ORDER. WILL MONITOR EFFECTIVENESS. SWR IN PLACE STILL PULLING AT LINES RELEASED EVERY 2 HRS FOR 15 MIN.
--- NOTE | 2016-09-21 14:54 | EC ---
PATIENT:EMILEE RICH DATE OF SERVICE: 09/17/16 SEX: F MEDICAL RECORD: [id number] DATE OF : 31 LOCATION:D.MS [facility] AGE OF PATIENT: 86 ADMISSION DATE: 09/17/16 REFERRING PHYSICIAN: INTERPRETING PHYSICIAN: SUN BEEBE M.D. ECHOCARDIOGRAM REPORT ECHO CHARGES 4 ECHO COMPLETE CLINICAL DIAGNOSIS: MRSA ECHOCARDIOGRAPHIC MEASUREMENTS (adult normal given) AC root (d.<3.7cm) 3.1 LV Septum d (<1.2 cm> 1.6 Valve Excursion 1.3 LV Septum (systole) 2.1 Left Atria (s.<4.0cm> 3.8 LVPW d(<1.2cm) 1.3 RV (d.<2.3cm) 1.8 LVPW (sytole) 1.8 LV diastole(<5.6CM) 5.4 MV E-F(>70mm/sec) LV systole 3.3 LVOT Diameter 1.7 MV exc.(>10mm) Est.ejection fraction (50-75%) Pericardial Effusion N DOPPLER: LVIT A 165 E 118 LA RVSP 28.4 LVOT 137 AOP1/2T Asc. Ao 200 RVOT 88.0 RA PA 151 AV Gradient Peak 16.0 AV Mean 7.8 AV Area 1.9 MV Gradient Peak 11.3 MV Mean 4.1 MV Area COMMENTS: Flake Cutter Operator: Arki GUZMANOE Rug Inspector Helper:Nick Beebe TAPE# PACS DATE OF SERVICE: 09/19/2016 REFERRING PHYSICIAN: Yue Holloway MD DESCRIPTION: Left ventricle demonstrates left ventricular hypertrophy. No wall motion abnormalities were seen. Estimated ejection fraction is 60%. Mitral valve is structurally normal. There is no regurgitation or prolapse seen. Left atrium is normal in size. The aortic valve leaflets are thickened. However, there is no stenosis or regurgitation noted. Right ventricle is normal size and function. Tricuspid valve is structurally normal. There is no regurgitation ECHOCARDIOGRAM REPORT [id number] EMILEE RICH noted. Right atrium is normal size. There is no pericardial effusion seen. IMPRESSION: 1. Normal left ventricular size and function, ejection fraction 60%. 2. Aortic valve sclerosis without stenosis. TRANSINT:[id number] Voice Confirmation ID: [id number] DOCUMENT ID: [id number] SUN BEEBE M.D. at 1454 CC: [id number] DICTATION DATE: 09/20/16 1021 CREDIT AND COLLECTIONS ANALYST: 09/20/[address] [facility] [address] [id number]
--- NOTE | 2016-09-21 15:00 | NUR ---
PT RESTING GIVEN 2 MG IV DILAUDID
--- NOTE | 2016-09-21 19:00 | NUR ---
PT CONTNUES WITH SWR
--- NOTE | 2016-09-21 20:10 | NUR ---
RECIEVED PT LYING IN BED, NON VERBAL BUT MOANING, BOTH WRISTS SECURED IN SOFT RESTRAINTS, RESTRAINTS REMOVED AND WRISTS ASSESSED, NO TRAUMA NOTED, ISOLATION PRECAUTIONS IN PLACE, WILL MONITOR
--- NOTE | 2016-09-21 22:27 | NUR ---
MEDS GIVEN PER IGLBERTO, NADJA WELL, SAFETY AND ISOLATION PRECAUTIONS IN PLACE
--- NOTE | 2016-09-21 23:51 | NUR ---
PRN DILAUDID GIVEN FOR OBSERVATION OF PAIN 8/10 ON [place] SCALE, NADJA WELL, WILL CONTINUE TO MONITOR
[2016-09-22] VITALS (12 sets, daily range): BP systolic 118–179; BP diastolic 53–99
--- NOTE | 2016-09-22 01:26 | NUR ---
RESTING WITH EYES CLOSED, RESP WITH EASE, WRISTS ASSESSED, NO TRAUMA NOTED, FALL AND ISOLATION PRECAUTIONS REMAIN IN PLACE
--- NOTE | 2016-09-22 03:50 | NUR ---
PT MOANING WITH FACIAL GRIMACING, PRN DILAUDID GIVEN PER MAR, NADJA WELL, WILL CONTINUE TO MONITOR
[2016-09-22 06:23] LABS: BASOPHILS 0.1 % (0.0-2.0); EOSINOPHILS 2.3 % (0-7); HEMATOCRIT 24.2 % (36.0-48.0); HEMOGLOBIN 7.9 g/dL (12-16); IMMATURE GRANULOCYTES 0.5 % (0-5); LYMPHOCYTES 21.6 % (15-50); MCHC 32.6 g/dL (31.0-37.0); MCV 94.9 fL (80.0-100.0); MEAN PLATELET VOLUME 11.2 fL (7.4-10.4); MONOCYTES 14.2 % (2-11); NEUTROPHILS 61.3 % (40-80); PLATELET COUNT 159 10x3/uL (130-400); RBC 2.55 10x6/uL (4.00-5.40); RDW 14.4 % (11.5-14.5); WBC 8.2 10x3/uL (4.8-10.8)
[2016-09-22 06:36] LABS: CALC OSMOLALITY 279 mosm/kg (275-300); CALCIUM 8.2 mg/dL (8.5-10.1); CARBON DIOXIDE 28.1 mmol/L (21.0-32.0); CHLORIDE - SERUM 107 mmol/L (98-107); CREATININE - SERUM 0.6 mg/dL (0.6-1.3); GLUCOSE 147 mg/dL (74-106); MAGNESIUM - SERUM 1.2 mg/dL (1.8-2.4); PHOSPHOROUS 3.4 mg/dL (2.5-4.9); SODIUM 138 mmol/L (136-145); UREA NITROGEN 16 mg/dL (7-18); eGFR NON AFRICAN AMERICAN > 90 mL/min (90-120)
[2016-09-22 06:39] LABS: POTASSIUM - SERUM 2.9 mmol/L (3.5-5.1)
--- NOTE | 2016-09-22 08:41 | NUR ---
TO RADIOLOGY FOR SBFT ORDERED
--- NOTE | 2016-09-22 09:00 | NUR ---
ASSESSMENT PER FLOW SHEET.PT WITHOUT NEEDS.MOANS OUT OCCASIONALLY.ISOLATION MAINTAINED.SOFT WRIST RESTRAINTS REMOVED AND THEN REAPPLIED.MONITOR FOR NEEDS
--- NOTE | 2016-09-22 09:54 | NUR ---
CALL FROM DAUGHTER FARNAZ.PASSWORD CONFIRMED.STATUS UPDATE GIVEN.
--- NOTE | 2016-09-22 14:32 | NUR ---
RESTING BETTER BUT STILL MOANS OCCASIONALLY.MONITOR FOR NEEDS
--- NOTE | 2016-09-22 19:19 | NUR ---
REMAINS WITHOUT CHANGE.CONT PLAN OF CARE
--- NOTE | 2016-09-22 20:00 | NUR ---
JARAD PAYNE PER E. PROTOCOL, PRN ATIVAN GIVEN FOR EXTREME ANXIETY, NADJA WELL, WILL MONITOR
--- NOTE | 2016-09-22 21:14 | NUR ---
PRN IN DILAUDED GIVEN FOR PAIN 9/10 ON [place] ALONG WITH ROUTINE MEDS, NADJA WELL, SAFETY MEASURES IN PLACE, WILL MONITOR
--- NOTE | 2016-09-22 23:16 | NUR ---
RESTING WITH EYES CLOSED, NO SS OF PAIN OR DISTRESS NOTED, CL IN REACH, WILL CONTINUE TO MONITOR
[2016-09-23] VITALS (11 sets, daily range): BP systolic 116–173; BP diastolic 63–111
--- NOTE | 2016-09-23 01:43 | NUR ---
PRN DILAUDID GIVEN FOR PAIN 9/10 ON [place], PT MOANING AND CRYING OUT, NADJA WELL, SAFETY AND ISOLATION PRECAUTIONS IN PLACE
--- NOTE | 2016-09-23 05:07 | NUR ---
PRN ATIVAN GIVEN FOR SEVERE ANXIETY ALONG WITH ROUTINE MEDS, REPOSITIONED IN BED, SAFETY MEASURES IN PLACE
--- NOTE | 2016-09-23 06:57 | NUR ---
IV TO R HAND PULLED OUT, CATH INTACT
--- NOTE | 2016-09-23 07:54 | NUR ---
AWAKE AND MOANING AT THIS TIME. WILL RESPOND TO VERBAL CUEING SLIGHTLY, UNABLE TO ASSESS ORIENTATION PATIENT WONT SPEAK. LUNGS HAVE CRACKLES THROUGHOUT LUNG CHILDS, NO COUGH NOTED AT THIS TIME. SKIN IS INTACT WITHOUT REDNESS EXCEPT WOUND TO RIGHT THIGH WHICH HAS A DRY INTACT DRESSING IN PLACE. LEFT PICC PATENT WITHOUT REDNESS AT INSERTION SITE. CASTILLO PATENT WITH CLEAR YELLOW URINE. NO NEEDS NOTED.
--- NOTE | 2016-09-23 09:00 | NUR ---
RESTING QUIETLY WITH EYES CLOSED. RESTRAINTS REMOVED FOR SKIN CHECK. NO NEEDS NOTED.
--- NOTE | 2016-09-23 13:00 | NUR ---
REPOSITIONED TO BACK. RESTRAINTS RELEASED FOR SKIN MONITORING. NO NEEDS NOTED.
--- NOTE | 2016-09-23 15:40 | NUR ---
RESTING QUIETLY AT THIS TIME. CONTINUES CONFUSED AND YELLING OUT. NO RESPONSE TO CALLING HER NAME OF TACTILE STIMULATION.
--- NOTE | 2016-09-23 17:00 | NUR ---
TEMP AT 101.5. BLOOD CULTURES DRAWN AND SENT TO LAB. NO CHANGES NOTED AT THIS TIME.
[2016-09-23 17:29] LABS: BASOPHILS 0.2 % (0.0-2.0); EOSINOPHILS 1.3 % (0-7); HEMATOCRIT 24.4 % (36.0-48.0); HEMOGLOBIN 7.8 g/dL (12-16); IMMATURE GRANULOCYTES 0.7 % (0-5); LYMPHOCYTES 16.9 % (15-50); MCH 30.8 pg (26.0-34.0); MCV 96.4 fL (80.0-100.0); MEAN PLATELET VOLUME 11.1 fL (7.4-10.4); MONOCYTES 12.9 % (2-11); PLATELET COUNT 165 10x3/uL (130-400); RBC 2.53 10x6/uL (4.00-5.40); RDW 14.5 % (11.5-14.5); WBC 8.7 10x3/uL (4.8-10.8)
[2016-09-23 17:46] LABS: CARBON DIOXIDE 26.6 mmol/L (21.0-32.0); CHLORIDE - SERUM 97 mmol/L (98-107); CREATININE - SERUM 0.6 mg/dL (0.6-1.3); SODIUM 130 mmol/L (136-145); eGFR NON AFRICAN AMERICAN > 90 mL/min (90-120)
[2016-09-23 17:51] LABS: CALC OSMOLALITY 275 mosm/kg (275-300); GLUCOSE 391 mg/dL (74-106); POTASSIUM - SERUM 4.9 mmol/L (3.5-5.1); UREA NITROGEN 11 mg/dL (7-18)
--- NOTE | 2016-09-23 19:31 | NUR ---
PATIENT SITTING UP IN BED. NO COMPLAINTS AT THIS TIME. NGT PULLED. CUP OF ICE WATER AND CHICKED BROTH GIVEN. BED IN LOWEST LOCKED POSITION, CALL LIGHT WITHIN REACH, BED RAILS UP X2, HOB ELEVATED 45 DEGREES.
--- NOTE | 2016-09-23 22:50 | NUR ---
DR EARL SALGADO FOR CLARIFICATION OF BLOOD WITH A TEMP >101.1 500MG IV TYLENOL GIVEN FOR FEVER OF 101.8
--- NOTE | 2016-09-23 23:07 | NUR ---
BLOOD BEING HELD UNTIL FEVER IS DOWN PER DR ELLIOTT
--- NOTE | 2016-09-23 23:47 | NUR ---
PRN DILAUDID GIVEN FOR PAIN 10/10 ON [place], PT WITH MOANING AND FACIAL GRIMACING, NADJA WELL,
[2016-09-24] VITALS: BP 113/39
[2016-09-24 02:00] VITALS: BP 137/61
[2016-09-24 04:00] VITALS: BP 148/63
[2016-09-24 05:46] LABS: BASOPHILS 0.4 % (0.0-2.0); EOSINOPHILS 2.2 % (0-7); HEMOGLOBIN 8.1 g/dL (12-16); IMMATURE GRANULOCYTES 0.6 % (0-5); MCH 30.3 pg (26.0-34.0); MCHC 32.4 g/dL (31.0-37.0); MEAN PLATELET VOLUME 10.8 fL (7.4-10.4); MONOCYTES 11.8 % (2-11); PLATELET COUNT 151 10x3/uL (130-400); RBC 2.67 10x6/uL (4.00-5.40); RDW 14.3 % (11.5-14.5)
[2016-09-24 05:48] LABS: MCV 93.6 fL (80.0-100.0); WBC 5.1 10x3/uL (4.8-10.8)
--- NOTE | 2016-09-24 06:11 | NUR ---
ATTEMPTED TO GET A HOLD OF THE POA FOR PATIENT. LEFT MESSAGE FOR THEM TO CALL THE FLOOR BACK.
[2016-09-24 06:16] LABS: ANION GAP 13.2 mmol/L (8-16); CALCIUM 8.1 mg/dL (8.5-10.1); CARBON DIOXIDE 28.1 mmol/L (21.0-32.0); CREATININE - SERUM 0.8 mg/dL (0.6-1.3); POTASSIUM - SERUM 3.3 mmol/L (3.5-5.1)
[2016-09-24 08:11] VITALS: BP 183/93
--- NOTE | 2016-09-24 08:17 | NUR ---
TURNED PATIENT TO HER RIGHT SIDE POSITIONED WITH PILLOWS.
--- NOTE | 2016-09-24 08:22 | NUR ---
PATIENT CRYING AND MOANING. NOT SAYING ANY WORDS. TRIED TO TALK TO PATIENT, PATIENT NOT RESPONDING VERBALLY.
--- NOTE | 2016-09-24 10:33 | NUR ---
CM REASSESSMENT NOTE: CM MET WITH PATIENTS DAUGHTERS REGARDING HOSPICE FOR PATIENT. DAUGHTERS WANTED HOSPICE IN [place] AND THEY CHOSE [facility] AND REQUESTED [facility]. CM CALLED [facility] BEDS ARE AVAILABLE. [facility] HAS BEEN NOTIFIED AND WILL MEET WITH FAMILY TODAY.
[2016-09-24 11:06] VITALS: BP 141/78
--- NOTE | 2016-09-24 12:00 | NUR ---
ORAL CARE COMPLETED AT THIS TIME USING GREEN SPONGED DIPPED IN ICE-WATER. SUCTIONED WITH YONKER AFTER ORAL CARE. APPLIED MOUTH MOISTURIZER TO TONGUE AND LIPS. PATIENT UNCOOOPERATIVE, MOVING HEAD AROUND. RIGHT ARM WRIST RESTRAINT OFF(SINCE PICC IS IN RIGHT ARM). CHANGED DRESSING TO RIGHT ANTERIOR LEG. PATIENT TRYING TO PUSH MY ARM AWAY WHILE I WAS CHANGING DRESSING. DRESSING CHANGED SUCCESSFULLY. WITH ASSIST FROM PRODUCTION REPAIRER PULLED PATIENT UP IN THE BED. TURNED PATIENT TO HER RIGHT SIDE, POSITIONED WITH PILLOW. A PILLOW BETWEEN HER LEGS. CASTILLO CATHETER DRAINING TO GRAVITY. BED IN LOWEST POSITION, CALL LIGHT IN REACH. BED RAILS UP X'S 2.
--- NOTE | 2016-09-24 12:41 | NUR ---
PATIENT IS RESTING QUIETLY WITH EYES CLOSED.
--- NOTE | 2016-09-24 14:25 | NUR ---
CM REASSESSMENT NOTE: PATIENT HAS BEEN ACCEPTED TO [facility] AND WILL BE AT [facility] IN [facility]. PATIENT WILL BE TRANSPORTED BY AMBULANCE TODAY.
--- NOTE | 2016-09-24 14:34 | NUR ---
MICHAEL, VASCULAR ACCESS NURSE D/C PICC LINE A FEW MINUTES AGO. I D/C PERIPHERAL IV FROM RIGHT FOREARM. TOOK OFF WRIST RESTRAINTS. PATIENT IS RESTING AT THIS TIME.
--- NOTE | 2016-09-24 15:15 | NUR ---
PATIENT LEFT VIA STRETCHER WITH EMS TO GO TO [place].
--- NOTE | 2016-09-24 15:23 | NUR ---
CALLED REPORT TO KIT LIM AT [facility].
[2016-09-26 13:15] LABS: FUNGUS MYCOLOGY CULTURE Preliminary report (()); FUNGUS STAIN RESULT 1 None seen (())
[2016-09-28 10:22] LABS: VIRAL - RESULT No virus isolated. (())
== END 2016-09-24 15:24 | disposition home health service (06) | DRG 862 ==
LOC: D.MS 09:38 → D.SDCHOLD 09:38 → D.MS 09:42
PROVIDERS: Internal Medicine Gastroenterology; Internal Medicine Pulmonary Disease; Psychiatry & Neurology Neurology; ADMIT Family Medicine
PROC: 05HF33Z Insertion of Infusion Device into Left Cephalic Vein, Percutaneous Approach (ICD-10-PCS; 2016-09-17)
PROC: B54NZZA Ultrasonography of Left Upper Extremity Veins, Guidance (ICD-10-PCS; 2016-09-17)
PROC: 009U3ZX Drainage of Spinal Canal, Percutaneous Approach, Diagnostic (ICD-10-PCS; 2016-09-19)
PROC: B01B1ZZ Fluoroscopy of Spinal Cord using Low Osmolar Contrast (ICD-10-PCS; 2016-09-19)
PROC: 02HV33Z Insertion of Infusion Device into Superior Vena Cava, Percutaneous Approach (ICD-10-PCS; principal; 2016-09-20)
PROC: B548ZZA Ultrasonography of Superior Vena Cava, Guidance (ICD-10-PCS; 2016-09-20)
DX: T81.4XXA Infection following a procedure, initial encounter (principal); J69.0 Pneumonitis due to inhalation of food and vomit; G93.41 Metabolic encephalopathy; J96.01 Acute respiratory failure with hypoxia; J98.11 Atelectasis; I13.0 Hypertensive heart and chronic kidney disease with heart failure and stage 1 through stage 4 chronic kidney disease, or unspecified chronic kidney disease; N17.9 Acute kidney failure, unspecified; E46 Unspecified protein-calorie malnutrition; D62 Acute posthemorrhagic anemia; F02.81 Dementia in other diseases classified elsewhere, unspecified severity, with behavioral disturbance; F05 Delirium due to known physiological condition; E87.0 Hyperosmolality and hypernatremia; K92.2 Gastrointestinal hemorrhage, unspecified; I82.812 Embolism and thrombosis of superficial veins of left lower extremity; G30.9 Alzheimer's disease, unspecified; D63.8 Anemia in other chronic diseases classified elsewhere; B96.20 Unspecified Escherichia coli [E. coli] as the cause of diseases classified elsewhere; B95.62 Methicillin resistant Staphylococcus aureus infection as the cause of diseases classified elsewhere; E78.5 Hyperlipidemia, unspecified; N18.9 Chronic kidney disease, unspecified; E03.9 Hypothyroidism, unspecified; N32.81 Overactive bladder; H35.30 Unspecified macular degeneration; F32.9 Major depressive disorder, single episode, unspecified; F41.9 Anxiety disorder, unspecified; E87.6 Hypokalemia; R00.0 Tachycardia, unspecified; R21 Rash and other nonspecific skin eruption; Z66 Do not resuscitate; M13.0 Polyarthritis, unspecified; K21.9 Gastro-esophageal reflux disease without esophagitis